=== PATIENT | female | born 1995 | race Caucasian/White ===

== ENCOUNTER 2017-03-29 12:35 | Observation (INO) | payer OTHER ==
--- NOTE | 2017-03-29 13:01 | EDPHY ---
H & P Stated Complaint: r abd pain/fever since this morning - Personal History LMP (Females 10-55): 22-28 Days Ago Current Tetanus/Diphtheria Vaccine: Yes - Medical/Surgical History Hx Asthma: Yes Hx Chronic Respiratory Disease: No Hx Diabetes: No Hx Cardiac Disease: No Hx Renal Disease: No Hx Cirrhosis: No Hx Alcoholism: No Hx HIV/AIDS: No Other PMH: PSORIASIS. ASTHMA-DOES NOT CARRY INHALER ANYMORE - Social History Smoking Status: Never smoked Time Seen by Provider: 03/29/17 13:01 Constitutional: Initial Vital Signs Temperature (C) 37 C 03/29/17 12:43 Heart Rate 92 03/29/17 12:43 Respiratory Rate 17 03/29/17 12:43 Blood Pressure 131/77 H 03/29/17 12:43 O2 Sat (%) 99 03/29/17 12:43 O2 Delivery Mode Room Air Allergies/Adverse Reactions: No Known Allergies Allergy (Verified 03/29/17 12:43) Home Medications: Medication Instructions Recorded NK [No Known Home Meds] 03/29/17 Medical Decision Making ED Course/Re-evaluation: CHIEF COMPLAINT: Right-sided abdominal pain, fever. HISTORY OF PRESENT ILLNESS: This patient is a 21 year old female complaining of right-sided abdominal pain and fever onset this morning. She states the pain has been worsening since onset , and that it hurts more with movement, especially walking. She denies history of abdominal surgery. She denies recent illness or trauma. She states she had coffee and water this morning, but has not eaten today. REVIEW OF SYSTEMS: A 10 point review of systems was performed and is negative with the exception of the elements mentioned in the history of present illness. PHYSICAL EXAM: HR, BP, O2 Sat, RR. Temp noted General Appearance: Alert, well hydrated, appropriate, and non-toxic appearing. Head: Atraumatic without scalp tenderness or obvious injury Eyes: Pupils equal, round, reactive to light and accommodation, EOMI, no trauma , no injection. Ears: Clear bilaterally, no perforation, normal landmarks Nose: Atraumatic, no rhinorrhea, clear. Throat: There is no erythema or exudates, no lesions, normal tonsils, mucus membranes moist. Neck: Supple, nontender, no lymphadenopathy. Respiratory: No retractions, no distress, no wheezes, and no accessory muscle use. Lungs are clear to auscultation bilaterally. Cardiovascular: Regular rate and rhythm, no murmurs, rubs, or gallops. Good capillary refill all extremities. Gastrointestinal: Exquisite tenderness to RLQ. Abdomen is soft, non-distended, no masses, no rebound, no guarding, no peritoneal signs. Musculoskeletal: Normal active ROM of all extremities, atraumatic. Neurological: Alert, appropriate, and interactive. Nonfocal neuro exam. Skin: No rashes, good turgor, no nodules on palpation. Past medical history: Asthma Past surgical history: Denies Family history: Noncontributory Social history: Lives in [place]. PCP in [place]. DIFFERENTIAL DIAGNOSIS: The differential diagnosis for the patient's abdominal pain included but was not limited to appendicitis, cholecystitis, ovarian cyst, pelvic inflammatory disease, ovarian torsion, urinary tract infection, and ectopic . MEDICAL DECISION MAKING: This patient is a healthy 21 year old female presenting with right-sided abdominal pain onset this morning. Physical exam reveals exquisitely tender right lower quadrant. Plan for abdominal CT to rule out acute processes including appendicitis. Plan for labs including CBC, CHEM, BHCG, and UA. 15:03 I signed over care of this patient to Dr. Harry at shift change. Waiting on CT report. (Jalil Thakur) 1524: This patient was signed over to me at 3:00 p.m. shift change follow-up CT abdomen pelvis with IV contrast rule out acute appendicitis. Is notified to me by Dr. Mendoza with Radiology, this patient has acute appendicitis 10 mm hyperemic retrocecal acute appendicitis. I have updated the patient. I will consult General surgery for this patient. ( Roger Harry) - Data Points Laboratory Results: Laboratory Results 03/29/17 13:15 03/29/17 13:15 03/29/17 03/29/17 03/29/17 13:22 13:15 13:15 WBC RBC Hgb POC Hgb 14.6 gm/dL gm/dL (12.6-16.3) Hct POC Hct 43 % % (38-47) MCV MCH MCHC RDW Plt Count MPV Neut % (Auto) Lymph % (Auto) Tift % (Auto) Eos % (Auto) Baso % (Auto) Nucleat RBC Rel Count Absolute Neuts (auto) Absolute Lymphs (auto) Absolute Monos (auto) Absolute Eos (auto) Absolute Basos (auto) Absolute Nucleated RBC Immature Gran % Immature Gran # POC Sodium 140 mEq/L mEq/L (134-144) Sodium 139 mEq/L mEq/L (134-144) POC Potassium 3.8 mEq/L mEq/L (3.3-5.0) Potassium 4.0 mEq/L mEq/L (3.5-5.2) POC Chloride 104 mEq/L mEq/L (97-110) Chloride 103 mEq/L mEq/L (97-110) Carbon Dioxide 20 mEq/l L mEq/l (22-31) Anion Gap 16 mEq/L mEq/L (8-16) POC BUN 14 mg/dL mg/dL (7-23) BUN 15 mg/dL mg/dL (7-23) Creatinine 0.8 mg/dL mg/dL (0.6-1.0) POC Creatinine 0.8 mg/dL mg/dL (0.6-1.0) Estimated GFR > 60 Glucose 84 mg/dL mg/dL (70-100) POC Glucose 93 mg/dL mg/dL (70-100) Calcium 10.3 mg/dL mg/dL (8.5-10.4) Beta HCG, Qual NEGATIVE 03/29/17 13:15 WBC 14.80 10^3/uL H 10^3/uL (3.80-9.50) RBC 4.59 10^6/uL 10^6/uL (4.18-5.33) Hgb 13.4 g/dL g/dL (12.6-16.3) POC Hgb Hct 39.5 % % (38.0-47.0) POC Hct MCV 86.1 fL fL (81.5-99.8) MCH 29.2 pg pg (27.9-34.1) MCHC 33.9 g/dL g/dL (32.4-36.7) RDW 13.4 % % (11.5-15.2) Plt Count 238 10^3/uL 10^3/uL (150-400) MPV 10.9 fL fL (8.7-11.7) Neut % (Auto) 86.8 % H % (39.3-74.2) Lymph % (Auto) 7.2 % L % (15.0-45.0) Tift % (Auto) 5.2 % % (4.5-13.0) Eos % (Auto) 0.0 % L % (0.6-7.6) Baso % (Auto) 0.4 % % (0.3-1.7) Nucleat RBC Rel Count 0.0 % % (0.0-0.2) Absolute Neuts (auto) 12.84 10^3/uL H 10^3/uL (1.70-6.50) Absolute Lymphs (auto) 1.07 10^3/uL 10^3/uL (1.00-3.00) Absolute Monos (auto) 0.77 10^3/uL 10^3/uL (0.30-0.80) Absolute Eos (auto) 0.00 10^3/uL L 10^3/uL (0.03-0.40) Absolute Basos (auto) 0.06 10^3/uL 10^3/uL (0.02-0.10) Absolute Nucleated RBC 0.00 10^3/uL 10^3/uL (0-0.01) Immature Gran % 0.4 % % (0.0-1.1) Immature Gran # 0.06 10^3/uL 10^3/uL (0.00-0.10) POC Sodium Sodium POC Potassium Potassium POC Chloride Chloride Carbon Dioxide Anion Gap POC BUN BUN Creatinine POC Creatinine Estimated GFR Glucose POC Glucose Calcium Beta HCG, Qual Point of Care Test Results: 03/29/17 13:22 POC Sodium 140 POC Potassium 3.8 POC Chloride 104 POC BUN 14 POC Creatinine 0.8 POC Glucose 93 Departure - Departure Disposition: [facility] Inpatient Acute Clinical Impression: Acute appendicitis Qualifiers: Acute appendicitis type: with localized peritonitis Qualified Code(s): K35.3 - Acute appendicitis with localized peritonitis Condition: Fair Referrals: NONE *PRIMARY CARE P,. [Primary Care Provider] - As per Instructions Report Scribed for: Jalil Thakur Report Scribed by: Lien Johnson Date of Report: 03/29/17 Time of Report: 13:19
[2017-03-29 13:41] LABS: % IMMATURE GRANULYOCYTES 0.4 % (0.0-1.1); ABSOLUTE IMMATURE GRANULOCYTES 0.06 10^3/uL (0.00-0.10); ADD DIFF? NO; ADD MORPH? NO; ADD SCAN? NO; ATYPICAL LYMPHOCYTE FLAG 0 (0-99); FRAGMENT RBC FLAG 0 (0-99); HEMATOCRIT 39.5 % (38.0-47.0); HEMOGLOBIN 13.4 g/dL (12.6-16.3); LEFT SHIFT FLG 0 (0-99); LIPEMIA HEMOLYSIS FLAG 90 (0-99); MEAN CELL HEMOGLOBIN 29.2 pg (27.9-34.1); MEAN CELL HEMOGLOBIN CONCENTR. 33.9 g/dL (32.4-36.7); MEAN CELL VOLUME 86.1 fL (81.5-99.8); MEAN PLATELET VOLUME 10.9 fL (8.7-11.7); PLATELET CLUMPS FLAG 20 (0-99); PLATELET COUNT 238 10^3/uL (150-400); RED BLOOD CELL COUNT 4.59 10^6/uL (4.18-5.33); RED CELL DISTRIBUTION WIDTH 13.4 % (11.5-15.2)
[2017-03-29 14:03] LABS: ANION GAP 16 mEq/L (8-16); CALCIUM 10.3 mg/dL (8.5-10.4); CARBON DIOXIDE 20 mEq/l (22-31); CHLORIDE 103 mEq/L (97-110); CREATININE 0.8 mg/dL (0.6-1.0); GLOMERULAR FILTRATION RATE > 60; GLUCOSE 84 mg/dL (70-100); SODIUM 139 mEq/L (134-144)
[2017-03-29] MEDS ORDERED: IOPAMIDOL (ISOVUE-300) 100 ML BTL ONE (14:45)
[2017-03-29] MEDS ORDERED: ERTAPENEM 1 GM in NS 100 ML IV ONE (15:31)
[2017-03-29] MEDS ORDERED: NS 1,000 ML IV ONE (15:31)
[2017-03-29] MEDS ORDERED: ONDANSETRON 4 MG/2 ML VIAL IVP PRN (16:23)
[2017-03-29] MEDS ORDERED: LR 1,000 ML IV SCH (16:30)
--- NOTE | 2017-03-29 16:33 | POSTOPPROG ---
Post Op Note Date of Operation: 03/29/17 Surgeon: Christiano Merrill Anesthesia: GET(General Endotracheal) Pre-op Diagnosis: acute appendicitis Post-op Diagnosis: acute appendicitis, unruptured Indication: acute appendicitis Procedure: laparoscopic appendectomy Findings: acute appendicitis, unruptured Inf/Abcess present in the surg proc area at time of surgery?: No EBL: Minimal Total fluids administered: 1800 since ER admission Complications: none
[2017-03-29] MEDS ORDERED: MIDAZOLAM 2 MG/2 ML VIAL ONE ×2 (16:36→16:39)
[2017-03-29] MEDS ORDERED: fentaNYL 100 MCG/2 ML INJ ONE ×3 (16:38→18:41)
[2017-03-29] MEDS ORDERED: PROPOFOL/EMULSION 500 MG/50 ML BOTTLE IV ONE (16:39)
--- NOTE | 2017-03-29 17:00 | GHP ---
[f rep st] PREOP HISTORY AND PHYSICAL DATE OF ADMISSION: 03/29/2017 ADMITTING DIAGNOSIS: Acute appendicitis. HISTORY: The patient is a 21-year-old white female who was camping up at [facility] last night. She awoke up with pain this morning at approximately 5 o 'clock in the morning, which she described initially as a stomach ache and nausea. She then got up and walked around. The pain then became sharp and shifted to the right lower quadrant. She developed nausea later this morning, but no vomiting. She had to backpack 2 miles out. She waited to see if this would resolve, and when it did not, she came to [facility]. Her last meal was at 10 o'clock last night. She has not had recent upper respiratory tract infection or diarrhea. There is no history of a prior similar symptom complex. There is no history of prior surgery. There is no history of inflammatory bowel disease. There is no history of travel or antibiotic use in the last 6 months. SOCIAL HISTORY: She does not smoke. She drinks approximately 4 drinks a week. ALLERGIES: She has no known drug allergies. MEDICATIONS: She is not taking medications. PAST SURGICAL HISTORY: Her only surgery has been wisdom tooth extraction. PAST MEDICAL HISTORY: There is no history of rheumatic fever, tuberculosis, hepatitis or transfusions. REVIEW OF SYSTEMS: Positive for history of asthma (sports induced). She has not used her inhaler for the past 5 years. Review of systems otherwise quite negative, except for GERD on a once-a-week basis at night. She has no limits on her activities. No history of steroid use. PHYSICAL EXAMINATION: GENERAL: She is awake and alert, and in mild distress. She is pleasant. HEENT: Her skull is normocephalic and atraumatic. NECK: Her neck is unremarkable. Her thyroid is not enlarged. LYMPH: There is no cervical or supraclavicular lymphadenopathy. No axillary or inguinal lymphadenopathy. LUNGS: Clear to auscultation. CARDIAC: Shows S1, S2 to be normal, with normal split S2, without murmurs, rubs, or gallops. ABDOMEN: Shows hypoactive bowel sounds. She is tender with cough over McBurney's point at a scale of 10/10. To palpation, left upper quadrant is 1, left midabdomen is 1, left lower quadrant is 1, epigastrium is 2, periumbilical area is 10, suprapubic area is 2, right upper quadrant is 2, right midabdomen is 10, right lower quadrant is 9. Psoas and obturator signs are negative. LABORATORY DATA: Her white blood cell count is 14.8, with 86% neutrophils, hematocrit is 39, platelet count is 238. Her laboratories were unremarkable. Beta hCG is negative. The urine has not been obtained. A CT scan is consistent with an appendicitis, which starts retrocecal and drapes medially. An IUD is in place. There is suspected disc bulging at L5-S1 range. IMPRESSION: Patient with acute appendicitis. This has occurred within the last 12 hours. The chance of rupture is quite low. She understands the planned procedure to be a laparoscopic appendectomy. She understands that if there are issues, there is a small possibility it will be an open appendectomy. She agrees to proceed as outlined. /[id number]/MODL MTDD
[2017-03-29] MEDS ORDERED: LABETALOL HCL 5 MG/ML 20 ML MDV ONE (17:15)
[2017-03-29] MEDS ORDERED: GLYCOPYRROLATE 0.2 MG/1 ML VIAL ONE (18:11)
[2017-03-29] MEDS ORDERED: ROCURONIUM 100 MG/10 ML VIAL ONE (18:11)
[2017-03-29] MEDS ORDERED: NEOSTIGMINE METHYLSULFATE 5 MG/5 ML SYR ONE (18:11)
[2017-03-29] MEDS ORDERED: RANITIDINE 50 MG/2 ML VIAL ONE (18:11)
[2017-03-29] MEDS ORDERED: DEXAMETHASONE 4 MG/ML VIAL ONE (18:11)
[2017-03-29] MEDS ORDERED: KETOROLAC 30 MG/1 ML SDV ONE (18:28)
--- NOTE | 2017-03-29 19:46 | GOP ---
[f rep st] OPERATIVE REPORT DATE OF OPERATION: 03/29/2017 SURGEON: Christiano Merrill MD ANESTHESIA: General endotracheal. PREOPERATIVE DIAGNOSIS: Acute appendicitis. POSTOPERATIVE DIAGNOSIS: Acute appendicitis, unruptured. PROCEDURE PERFORMED: Laparoscopic appendectomy. FINDINGS: Acute appendicitis, unruptured. There was no abscess identified. ESTIMATED BLOOD LOSS: Minimal. INDICATIONS: Acute appendicitis. DESCRIPTION OF PROCEDURE: The patient is placed on the operating table in supine position. After i nduction of adequate general endotracheal anesthesia, the abdomen was carefully clipped, prepped and draped. A surgical time-out was carried out and agreed to by all members of the surgical team. A curvilinear incision was planned at the umbilicus. The skin was sharply incised. The subcutaneou s fat was carefully spread to expose the anterior rectus sheath which was elevated between Allis cla mps. The fascia was divided in the midline. Pursestring 0 PDS was placed. The abdominal cavity wa s entered. An 11, 12 mm Sandor trocar was positioned. Intra-abdominal insufflation was carried out to 15 mmHg. A 5 mm left lower quadrant and a 5 mm suprapubic port were both placed. She is now positioned in a 25 degree Trendelenburg position, rotated 5 degrees to the left. The appendix is retrocecal. The c ecum was carefully elevated and rotated medially. The area of inflammation is mainly at the tip. T he mesoappendix was divided with a harmonic scalpel, clearing the appendix to its base on the cecum. A 35 mm vascular Endo-RADHA stapler was brought to the field. The appendix was transected. The appen juliano was further dissected free of its attachments, again using the Harmonic scalpel. Once it was fr eed, it was placed in EndoCatch bag. Note is made there was no evidence of rupture or peritonitis. The appendix was removed via the umbilical port site. Pneumoperitoneum was re-established. Irrigation with Ancef and heparin-containing irrigant is jayson ed out. There were no other obvious abnormalities identified. Ports were removed under direct vision. The umbilical port site was carefully examined. The fascia was elevated on either side of the midline with an Allis clamp. A simple suture of #0 PDS was plac ed side to side. The umbilical pursestring was tied, and now the simple 0 PDS suture is tied to pro vide a complete abdominal wall closure. The infraumbilical incision was carefully irrigated with he gabriella and Ancef-containing irrigant. Hemostasis was excellent. The skin was closed at all 3 sites with inverted simple sutures of #4-0 Vicryl. Mastisol and Steri-Strips were placed. Band-Aids were positioned. The patient was transferred to recovery in stable and satisfactory condition. FLUIDS: She received, including her ER fluids of approximately 400 cc, a total of 1800 cc since ER admission. /[id number]/MODL
[2017-03-29] MEDS: HYDROmorphONE/DILAUDID 1 MG/ML SYR IVP PRN (21:23)
[2017-03-29] MEDS: KETOROLAC 15 MG/1 ML SDV IVP SCH (21:59)
[2017-03-29] MEDS ORDERED: ACETAMINOPHEN 325 MG TAB PO SCH (22:00)
[2017-03-29] MEDS ORDERED: ACETAMINOPHEN 500 MG TAB PO SCH (22:00)
[2017-03-30] MEDS: KETOROLAC 15 MG/1 ML SDV IVP SCH ×3 (00:18→14:27)
[2017-03-30 08:53] VITALS: BP 106/63; PULSE 73; RESP 18; TEMP 98.9; O2SAT 94
[2017-03-30] MEDS ORDERED: FAMOTIDINE 20 MG TAB PO SCH (09:00)
[2017-03-30] MEDS: HYDROmorphONE/DILAUDID 1 MG/ML SYR IVP PRN (10:58)
--- NOTE | 2017-03-30 12:35 | SOAPPROG ---
SOAP Progress Note Assessment/Plan: 03/30/17 12:32 POD#1 Assessment: Doing well. pain controlled, passing flatus, eating Plan: Discharge Subjective: "I feel much better" Objective: Vital Signs Temp Pulse Resp BP Pulse Ox 37.2 C 73 18 106/63 94 03/30/17 08:00 03/30/17 08:00 03/30/17 08:00 03/30/17 08:00 03/30/17 08:00 03/29/17 03/30/17 03/31/17 05:59 05:59 05:59 Intake Total 2030 Output Total 625 Balance 1405 - Time Spent With Patient Time Spent With Patient: 15 Physical Exam - Physical Exam General Appearance: WD/WN, alert, no apparent distress Neck: non-tender, full range of motion, supple, normal inspection Respiratory: chest non-tender, lungs clear, normal breath sounds Cardiac/Chest: regular rate, rhythm Abdomen: normal bowel sounds, non-tender, soft, other (Incisions clean and dry) Pelvic Exam: deferred Rectal: deferred Back: Normal inspection Skin: normal color, warm/dry Neuro/Psych: no motor/sensory deficits, alert, normal mood/affect, oriented x 3 ICD10 Worksheet Patient Problems: Problems Problem Status Onset Acute appendicitis Acute
--- NOTE | 2017-03-30 13:27 | GDS ---
[f rep st] DISCHARGE SUMMARY DISCHARGE DIAGNOSES: Acute, unruptured appendicitis. CONDITION ON DISCHARGE: Improved. DISPOSITION: Home. SURGERY: Laparoscopic appendectomy. MEDICATIONS: At discharge, she is to take Tylenol 1000 mg every 8 hours as needed for pain. She will take Motrin 200 mg every 6 hours for moderate pain, and Dilaudid 2 mg every 2 hours p.r.n. severe pain. She also will take Pepcid on a daily basis for GERD. She will continue her omega-3 fatty acids, as well as her NuvaRing. For the next 3 weeks, she is to lift less than 10 pounds, shower only, keep her Steri-Strips in place, pursue gentle walking, and take a multivitamin with zinc , copper, and C. She is to watch for signs of infections: superficial infections; manifested by redness, warmth, swelling or tenderness of the wound or deep infections; manifested by fatigue, lost of appetite, fevers, and chills. She will follow up with Dr. Luigi Santiago and his colleagues in 2 weeks. She is to call and make an appointment. HOSPITAL COURSE: The patient was admitted and taken to the operating room. Her postoperative course has been uneventful. She is taking a regular diet and passing gas. At this point, her pain is well controlled. /[id number]/MODL MTDD
== END 2017-03-30 15:20 | disposition home or self-care (01) ==
LOC: INTOOBSV 15:25 → FOB 20:30
PROVIDERS: ADMIT Surgery; ATTEND Surgery
PROC: 0DTJ4ZZ Resection of Appendix, Percutaneous Endoscopic Approach (ICD-10-PCS; principal; 2017-03-29 16:39)
DX: K35.80 Unspecified acute appendicitis (principal)
CPT/HCPCS: 44970; 74177; G0378; 82947-QW; 96365; J1100; J1170; J1335; J1885; J2250; J2704; J2710; J2780; J3010; J3490; Q9967

== ENCOUNTER 2017-03-31 20:19 | Emergency (ER) | payer OTHER ==
[2017-03-31] MEDS ORDERED: HYDROmorphONE/DILAUDID 1 MG/ML SYR IVP ONE (21:20)
[2017-03-31] MEDS ORDERED: NS 1,000 ML IV ONE ×2 (21:20→22:44)
[2017-03-31] MEDS ORDERED: ONDANSETRON 4 MG/2 ML VIAL IVP ONE (21:20)
--- NOTE | 2017-03-31 21:23 | EDPHY ---
H & P Stated Complaint: appy on thursday, fever, back pain Source: Patient Exam Limitations: No limitations - Personal History LMP (Females 10-55): 15-21 Days Ago - Medical/Surgical History Hx Asthma: Yes Hx Chronic Respiratory Disease: No Hx Diabetes: No Hx Cardiac Disease: No Hx Renal Disease: No Hx Cirrhosis: No Hx Alcoholism: No Hx HIV/AIDS: No Other PMH: PSORIASIS. ASTHMA-DOES NOT CARRY INHALER ANYMORE - Family History Significant Family History: No pertinent family hx - Social History Smoking Status: Never smoked Alcohol Use: Sober Drug Use: None Time Seen by Provider: 03/31/17 21:15 HPI/ROS: CHIEF COMPLAINT: Abdominal pain and fever HISTORY OF PRESENT ILLNESS: Patient is a 21-year-old female who was seen here on Thursday and had an appendectomy with Dr. Merrill. She was discharged yesterday and was feeling better but her pain has increased today and she now has a fever. She has not vomited but has felt slightly nauseous. She has not had a bowel movement but has passed gas. No urinary symptoms. REVIEW OF SYSTEMS: Constitutional: denies: chills, fever, recent illness, recent injury EENTM: denies: blurred vision, double vision, nose congestion Respiratory: denies: cough, shortness of breath Cardiac: denies: chest pain, irregular heart rate, lightheadedness, palpitations Gastrointestinal/Abdominal: See HPI Genitourinary: denies: dysuria, frequency, hematuria, pain Musculoskeletal: denies: joint pain, muscle pain Skin: denies: lesions, rash, jaundice, bruising Neurological: denies: headache, numbness, paresthesia, tingling, dizziness, weakness Hematologic/Lymphatic: denies: blood clots, easy bleeding, easy bruising Immunologic/allergic: denies: HIV/AIDS, transplant EXAM: GENERAL: Obese HEAD: Atraumatic, normocephalic. EYES: Pupils equal round and reactive to light, extraocular movements intact, sclera anicteric, conjunctiva are normal. ENT: TMs normal, nares patent, oropharynx clear without exudates. Moist mucous membranes. NECK: Normal range of motion, supple without lymphadenopathy or JVD. LUNGS: Breath sounds clear to auscultation bilaterally and equal. No wheezes rales or rhonchi. HEART: Regular rate and rhythm without murmurs, rubs or gallops. ABDOMEN: Diffuse tenderness BACK: No CVA tenderness, no spinal tenderness, step-offs or deformities EXTREMITIES: Normal range of motion, no pitting or edema. No clubbing or cyanosis. NEUROLOGICAL: Cranial nerves II through XII grossly intact. Normal speech, normal gait. 5/5 strength, normal movement in all extremities, normal sensation PSYCH: Normal mood, normal affect. SKIN: Warm, dry, normal turgor, no visible rashes or lesions. (Justus Sorensen) Constitutional: Initial Vital Signs Temperature (C) 38.3 C 03/31/17 20:35 Heart Rate 103 H 03/31/17 20:35 Respiratory Rate 20 03/31/17 20:35 Blood Pressure 124/62 H 03/31/17 20:35 O2 Sat (%) 95 03/31/17 20:35 O2 Delivery Mode Room Air Allergies/Adverse Reactions: No Known Allergies Allergy (Verified 03/31/17 20:34) Home Medications: Medication Instructions Recorded Etonogestrel/Ethinyl Estradiol 1 each VG Q21D 03/29/17 [Nuvaring Vaginal Ring] [place]-3 Fatty Acids [Fish Oil 1000 2,000 mg PO DAILY 03/29/17 mg (*)] Acetaminophen [Tylenol ES 500 mg 1,000 mg PO Q8 PRN #30 tab 03/30/17 (*)] Famotidine [Pepcid 20 MG (*)] 20 mg PO DAILY #90 tab 03/30/17 HYDROmorphone HCL [Dilaudid 2 mg 2 mg PO Q4 #20 tab 03/30/17 (*)] Ibuprofen [Motrin (*)] 200 mg PO Q6 PRN #40 tab 03/30/17 Medical Decision Making ED Course/Re-evaluation: Care assumed by me from Dr. Sorensen at 2300 pending patient evaluation by a Dr. Santiago. Dr. Santiago has evaluated the patient emergency department. He is not feel that there is a significant intra-abdominal process at this time. CT scans and blood work are negative. He agrees with the plan to discharge the patient to home with outpatient follow-up. (Juan Diego Williamson) 10:50 p.m. I discussed the case with Dr. Jay Jay Santiago who will come and evaluate. The patient's temperature is decreased spontaneously. (Justus Sorensen) Differential Diagnosis: Partial list of the Differential diagnosis considered include but were not limited to; postoperative pain, anastomosis leak, abscess and although unlikely based on the history and physical exam, I also considered ischemia, obstruction. I discussed these differential diagnoses and the plan with the patient as well as the usual and expected course. The patient understands that the diagnosis is provisional and that in medicine we are not always correct and that further workup is often warranted. Usual and customary warnings were given. All of the patient's questions were answered. The patient was instructed to return to the emergency department should the symptoms at all worsen or return, otherwise to followup with the physician as we discussed. ( Justus Sorensen) - Data Points Laboratory Results: Laboratory Results 03/31/17 21:10 03/31/17 21:10 Medications Given: Discontinued Medications Hydromorphone HCl (Dilaudid) 1 mg IVP EDNOW ONE Stop: 03/31/17 21:21 Last Admin: 03/31/17 21:45 Dose: 0.5 mg Sodium Chloride (Ns) 1,000 mls @ 0 mls/hr IV ONCE ONE; Wide Open PRN Reason: Protocol Stop: 03/31/17 21:21 Last Admin: 03/31/17 21:20 Dose: 1,000 mls Sodium Chloride (Ns) 1,000 mls @ 0 mls/hr IV ONCE ONE; Wide Open PRN Reason: Protocol Stop: 03/31/17 22:45 Last Admin: 03/31/17 22:20 Dose: 1,000 mls Ondansetron HCl (Zofran) 4 mg IVP EDNOW ONE Stop: 03/31/17 21:21 Last Admin: 03/31/17 21:40 Dose: 4 mg Departure - Departure Disposition: Home, Routine, Self-Care Clinical Impression: Abdominal pain Qualifiers: Abdominal location: generalized Qualified Code(s): R10.84 - Generalized abdominal pain Condition: Fair Instructions: Abdominal Pain (ED) Additional Instructions: Return for worsening abdominal pain, severe nausea and vomiting, and concerning symptoms. Referrals: SUNDERRAJ,UNKNOWN [Other] - As per Instructions Jay Jay Santiago MD [Medical Doctor] - 2-3 days, call for appt.
[2017-03-31] MEDS ORDERED: IOPAMIDOL (ISOVUE-300) 100 ML BTL ONE (21:25)
[2017-03-31 21:32] LABS: % IMMATURE GRANULYOCYTES 0.5 % (0.0-1.1); ABSOLUTE IMMATURE GRANULOCYTES 0.04 10^3/uL (0.00-0.10); ADD DIFF? NO; ADD MORPH? NO; ADD SCAN? NO; ATYPICAL LYMPHOCYTE FLAG 0 (0-99); FRAGMENT RBC FLAG 0 (0-99); HEMATOCRIT 35.5 % (38.0-47.0); HEMOGLOBIN 11.8 g/dL (12.6-16.3); LEFT SHIFT FLG 0 (0-99); LIPEMIA HEMOLYSIS FLAG 80 (0-99); MEAN CELL HEMOGLOBIN 29.1 pg (27.9-34.1); MEAN CELL HEMOGLOBIN CONCENTR. 33.2 g/dL (32.4-36.7); MEAN CELL VOLUME 87.7 fL (81.5-99.8); MEAN PLATELET VOLUME 11.1 fL (8.7-11.7); PLATELET CLUMPS FLAG 0 (0-99); PLATELET COUNT 237 10^3/uL (150-400); RED BLOOD CELL COUNT 4.05 10^6/uL (4.18-5.33); RED CELL DISTRIBUTION WIDTH 13.4 % (11.5-15.2)
[2017-03-31 21:41] LABS: INR 1.02 (0.83-1.16); PROTIME(PATIENT) 13.3 SEC (12.0-15.0)
[2017-03-31 21:42] LABS: APTT 29.4 SEC (23.0-38.0)
[2017-03-31 21:45] LABS: ALANINE AMINOTRANSFERASE 32 IU/L (9-52); ALBUMIN 4.2 g/dL (3.5-5.0); ALKALINE PHOSPHATASE 60 IU/L (38-126); ANION GAP 12 mEq/L (8-16); ASPARTATE AMINOTRANSFERASE 23 IU/L (14-46); BILIRUBIN,TOTAL 0.6 mg/dL (0.1-1.4); BILIRUBIN-CONJUGATED 0.2 mg/dL (0.0-0.5); BILIRUBIN-UNCONJUGATED 0.4 mg/dL (0.0-1.1); CALCIUM 9.5 mg/dL (8.5-10.4); CARBON DIOXIDE 22 mEq/l (22-31); CHLORIDE 102 mEq/L (97-110); CREATININE 0.9 mg/dL (0.6-1.0); GLOMERULAR FILTRATION RATE > 60; GLUCOSE 108 mg/dL (70-100); SODIUM 136 mEq/L (134-144); TOTAL PROTEIN 7.1 g/dL (6.3-8.2)
[2017-04-01 01:12] VITALS: BP 115/73; PULSE 82; RESP 16; TEMP 98.6; O2SAT 95
--- NOTE | 2017-04-01 01:29 | GCON ---
[f rep st] CONSULTATION EMERGENCY ROOM CONSULTATION Patient is a 21-year-old female, who came to the ER tonight complaining some back pain and a fever. She is 2 days status post appendectomy for nonperforated appendix. Has had no nausea or vomiting. She has been passing flatus and eating well and urinating well. She has not had no bowel movement yet. REVIEW OF SYSTEMS: On a full 10-point review is negative, specifically denying any urinary pain or symptoms or any diarrhea, any cough, or any icterus. ALLERGIES: None. MEDICATIONS: Include estradiol, Pepcid, Dilaudid, Motrin, and Tylenol. FAMILY HISTORY: Noncontributory. PAST MEDICAL HISTORY: Includes some psoriasis, some asthma for which she does not use an inhaler. She does not smoke. PHYSICAL EXAMINATION: GENERAL: Reveals a comfortable, afebrile 21-year-old female, in no acute dis tress. She is somewhat overweight. HEAD AND NECK: Negative for adenopathy, for oral lesions or fo r icterus or for thyromegaly. Pupils are normal. CHEST: Clear and symmetric. CARDIAC: Reveals a regular rhythm. ABDOMEN: Soft. She has some slight tenderness around her trocar sites but positi ve bowel sounds. No masses. No peritoneal signs and no hernias. EXTREMITIES: Benign with full pu lses. IMPRESSION: Postoperative fever of uncertain etiology, which is now resolved. She has had no fever during the entire stay in the ER after the initial check. CT scan done in the ER was negative for any signs of abscess or intraabdominal problems. White count was normal, and her chest x-ray was cl ear. Impression is up postoperative fever probably secondary to atelectasis. PLAN: Discharge home to follow up with me in the office in 24-48 hours. Certainly, sooner if her s ymptoms recur or worsen. /[id number]/MODL
== END 2017-04-01 01:10 | disposition home or self-care (01) ==
DX: R50.82 Postprocedural fever (principal); R10.84 Generalized abdominal pain
CPT/HCPCS: 96374; J1170; J2405; Q9967